=== PATIENT | female | born 1995 | race Two or more races ===

== ENCOUNTER 2020-01-14 12:06 | Emergency (ER) | payer OTHER ==
[~2020-01-14] VITALS: Ht 152.4 cm; Wt 47.2 kg
[2020-01-14] MEDS ORDERED: VITATRUE COMBO1 EACH PO (12:15)
== END 2020-01-14 14:10 | disposition home or self-care (01) ==
LOC: ER 12:06
DX: O26.892 Other specified pregnancy related conditions, second trimester (principal); O26.842 Uterine size-date discrepancy, second trimester; O36.80X1 Pregnancy with inconclusive fetal viability, fetus 1; Z3A.16 16 weeks gestation of pregnancy

== ENCOUNTER → 2020-02-06 | Outpatient (CLI) | payer OTHER ==
[~2020-02-06] MED LIST: VITATRUE COMBO1 EACH PO
== END | disposition home or self-care (01) ==
LOC: PRENATAL 10:54
PROVIDERS: ATTEND Obstetrics & Gynecology Maternal & Fetal Medicine
DX: O35.3XX0 Maternal care for (suspected) damage to fetus from viral disease in mother, not applicable or unspecified (principal); Z36.89 Encounter for other specified antenatal screening

== ENCOUNTER 2020-05-10 17:29 | Outpatient (CLI) | payer OTHER | END 2020-05-11 08:57 | disposition home or self-care (01) | LOC: OBS/DEL 17:29 | PROVIDERS: ATTEND Obstetrics & Gynecology | DX: O26.893 Other specified pregnancy related conditions, third trimester (principal); R10.2 Pelvic and perineal pain ==

== ENCOUNTER 2020-06-10 13:45 | Inpatient (IN) | payer OTHER ==
[~2020-06-10] VITALS: Ht 165.1 cm; Wt 62.6 kg
[2020-06-22] MEDS ORDERED: DIALYVITE 800-1 EACH PO (02:49)
== END 2020-06-24 14:59 | disposition home or self-care (01) | DRG 807 ==
LOC: OB/GYN 06-22 02:40 → LDR 06-22 02:40 → OB/GYN 06-22 11:21
PROVIDERS: ADMIT Obstetrics & Gynecology; ATTEND Obstetrics & Gynecology
PROC: 10E0XZZ Delivery of Products of Conception, External Approach (ICD-10-PCS; principal; 2020-06-22)
PROC: 4A1HXFZ Monitoring of Products of Conception, Cardiac Rhythm, External Approach (ICD-10-PCS; 2020-06-22)
PROC: 3E033VJ Introduction of Other Hormone into Peripheral Vein, Percutaneous Approach (ICD-10-PCS; 2020-06-22)
DX: O80 Encounter for full-term uncomplicated delivery (principal); Z37.0 Single live birth; Z3A.39 39 weeks gestation of pregnancy; Z20.828 Contact with and (suspected) exposure to other viral communicable diseases

== ENCOUNTER 2020-06-15 22:33 | Outpatient (CLI) | payer OTHER | END 2020-06-16 12:15 | disposition home or self-care (01) | LOC: OBS/DEL 22:33 | PROVIDERS: ATTEND Obstetrics & Gynecology | DX: O47.1 False labor at or after 37 completed weeks of gestation (principal); Z20.828 Contact with and (suspected) exposure to other viral communicable diseases ==